=== PATIENT | female | born 1955 | race Caucasian/White ===

== ENCOUNTER → 2017-01-27 | Outpatient (CLI) | payer BC ==
[~2017-01-27] MED LIST: ASCO500T8 PO; ASPI-496 PO; BIOT10TA PO; CALC1CAP8 PO; CHOL100015 PO; KRIL1CAP19 PO; MULT-658 PO
[2017-01-27 12:51] LABS: ASPARTATE AMINO TRANSFERASE 12 U/L (15-37); BLOOD UREA NITROGEN 14 mg/dL (7-18)
== END | disposition home or self-care (01) ==
LOC: STAR 10:26
PROVIDERS: ATTEND Surgery
DX: Z01.818 Encounter for other preprocedural examination (principal); J98.11 Atelectasis; I70.0 Atherosclerosis of aorta; Z85.3 Personal history of malignant neoplasm of breast
CPT/HCPCS: 36415; 71020; 80053; 85025; 93005

== ENCOUNTER 2017-02-06 06:22 | Inpatient (IN) | payer BC ==
[~2017-02-06] VITALS: Ht 163.8 cm; Wt 76.3 kg
[2017-02-06] MEDS ORDERED: LACTATED RINGERS 1,000 ML IV SCH (06:41)
[2017-02-06 06:42] VITALS: BP 133/80
[2017-02-06] MEDS ORDERED: LIDOCAINE 1%, 2ML SQ PRN (07:00)
[2017-02-06] MEDS ORDERED: BUPIVACAINE/PF 0.5% ONE ×2 (07:06→08:00)
[2017-02-06] MEDS ORDERED: MIDAZOLAM 1 MG/ML, 2ML ONE (07:13)
[2017-02-06] MEDS ORDERED: FENTANYL PF 100 MCG/2ML ONE ×3 (07:13→09:57)
[2017-02-06] MEDS ORDERED: ROCURONIUM 10 MG/ML ONE ×2 (07:47)
[2017-02-06] MEDS ORDERED: DEXAMETHASONE 4 MG/ML, 5ML ONE (07:47)
[2017-02-06] MEDS ORDERED: CEFOTETAN 2 GM ONE (07:47)
[2017-02-06] MEDS ORDERED: KETOROLAC 30 MG/1 ML ONE (07:47)
[2017-02-06] MEDS ORDERED: PROPOFOL 10 MG/ML, 20ML ONE (07:47)
[2017-02-06] MEDS ORDERED: ONDANSETRON 2MG/ML, 2ML ONE ×2 (07:47→10:34)
[2017-02-06] MEDS ORDERED: OXYcodone 5 MG/5 ML ORAL.SOL UDC PO PRN ×2 (09:00→13:00)
[2017-02-06] MEDS ORDERED: MEPERIDINE/PF 25MG/0.5ML IVPush PRN (09:00)
[2017-02-06] MEDS ORDERED: PROMETHAZINE 25 MG/ML, 1ML IV PRN (09:00)
[2017-02-06] MEDS ORDERED: LABETALOL 5MG/ML, 20ML IV PRN (09:00)
[2017-02-06] MEDS ORDERED: ACETAMINOPHEN 325 MG TABLET PO PRN (09:00)
[2017-02-06] MEDS ORDERED: ONDANSETRON 2MG/ML, 2ML IVPush PRN (09:00)
[2017-02-06] MEDS ORDERED: FENTANYL PF 100 MCG/2ML IV PRN (09:00)
[2017-02-06] MEDS ORDERED: ACETAMINOPHEN 650 MG/20.3 ML UDC ONE (10:20)
[2017-02-06] MEDS ORDERED: ACETAMINOPHEN 325 MG/10.15 ML UDC ONE (10:20)
[2017-02-06] MEDS ORDERED: HYDROmorphone 1 MG/ML, 1ML ONE (10:21)
[2017-02-06] MEDS ORDERED: OXYcodone 5 MG/5 ML ORAL.SOL UDC ONE (10:21)
[2017-02-06] MEDS: HYDROmorphone 1 MG/ML, 1ML IV PRN ×2 (10:40→11:20)
[2017-02-06] MEDS ORDERED: DIPHENHYDRAMINE 50 MG/ML, 1ML IV PRN (13:00)
[2017-02-06] MEDS ORDERED: HYDROmorphone 1 MG/ML, 1ML IV PRN ×2 (13:00)
[2017-02-06] MEDS ORDERED: LORazepam 2 MG/ML, 1ML IV PRN (13:00)
[2017-02-06] MEDS ORDERED: LORazepam 1MG TABLET PO PRN (13:00)
[2017-02-06] MEDS ORDERED: DIPHENHYDRAMINE 25 MG CAPSULE PO PRN (13:00)
[2017-02-06] MEDS ORDERED: POTASSIUM CHLORIDE 20 MEQ in D5%-0.45% NACL 1,000 ML IV SCH (13:00)
[2017-02-06 14:34] VITALS: BP 103/59
[2017-02-06] MEDS: POTASSIUM CHLORIDE 20 MEQ in D5%-0.45% NACL 1,000 ML IV SCH (16:19)
[2017-02-06] MEDS: IBUPROFEN 600 MG TABLET PO SCH ×2 (16:25→21:04)
[2017-02-06] MEDS: ACETAMINOPHEN 500 MG TABLET PO SCH ×2 (16:25→22:15)
[2017-02-06] MEDS: ONDANSETRON 2MG/ML, 2ML IV PRN (17:22)
[2017-02-06 19:40] VITALS: BP 110/59
[2017-02-06] MEDS: CEFOTETAN PMX 2GM/50ML 50 ML IVPB SCH (19:51)
[2017-02-06] MEDS: FAMOTIDINE 20 MG TABLET PO SCH (21:04)
[2017-02-07] VITALS: BP 111/64
[2017-02-07 04:06] VITALS: BP 102/67
[2017-02-07] MEDS: ACETAMINOPHEN 500 MG TABLET PO SCH ×4 (04:15→22:23)
[2017-02-07] MEDS: ONDANSETRON 2MG/ML, 2ML IV PRN ×2 (05:11→11:22)
[2017-02-07 05:14] LABS: HEMOGLOBIN 11.9 g/dL (11.7-16.4); WHITE BLOOD COUNT 8.4 x10^3/uL (3.4-10)
[2017-02-07 05:29] LABS: BLOOD UREA NITROGEN 11 mg/dL (7-18)
[2017-02-07] MEDS: ENOXAPARIN 40 MG/0.4 ML SQ SCH (05:56)
[2017-02-07 07:02] VITALS: BP 110/70
[2017-02-07] MEDS: IBUPROFEN 600 MG TABLET PO SCH ×3 (08:23→21:07)
[2017-02-07] MEDS: FAMOTIDINE 20 MG TABLET PO SCH ×2 (08:23→21:07)
[2017-02-07] MEDS: CEFOTETAN PMX 2GM/50ML 50 ML IVPB SCH (08:23)
[2017-02-07] MEDS: POTASSIUM CHLORIDE 20 MEQ in D5%-0.45% NACL 1,000 ML IV SCH (10:46)
[2017-02-07 13:40] VITALS: BP 103/65
[2017-02-07 19:45] VITALS: BP 115/71
[2017-02-08 01:17] VITALS: BP 112/66
[2017-02-08] MEDS: ACETAMINOPHEN 500 MG TABLET PO SCH (04:33)
[2017-02-08 05:37] LABS: HEMATOCRIT 33.1 % (34.6-47.8); HEMOGLOBIN 11.2 g/dL (11.7-16.4); WHITE BLOOD COUNT 6.7 x10^3/uL (3.4-10)
[2017-02-08 05:42] LABS: BLOOD UREA NITROGEN 9 mg/dL (7-18)
[2017-02-08] MEDS: ENOXAPARIN 40 MG/0.4 ML SQ SCH (05:50)
[2017-02-08] MEDS: POTASSIUM CHLORIDE 20 MEQ in D5%-0.45% NACL 1,000 ML IV SCH (08:12)
[2017-02-08] MEDS: IBUPROFEN 600 MG TABLET PO SCH (08:52)
[2017-02-08] MEDS: FAMOTIDINE 20 MG TABLET PO SCH (08:52)
[2017-02-08 08:53] VITALS: BP 114/64
[2017-02-08] MEDS ORDERED: HYDR1TAB12 PO (09:55)
== END 2017-02-08 10:55 | disposition home or self-care (01) | DRG 331 ==
LOC: ORIP 06:22 → 4NOR 12:09
PROVIDERS: ADMIT Surgery; ATTEND Surgery
PROC: 0DTF4ZZ Resection of Right Large Intestine, Percutaneous Endoscopic Approach (ICD-10-PCS; principal; 2017-02-06 07:30)
DX: K63.89 Other specified diseases of intestine (principal); Z90.49 Acquired absence of other specified parts of digestive tract
CPT/HCPCS: 36415; 80048; 82040; 85025; 86850; 86900; 88309; J1100; J1170; J1650; J1885; J2250; J2405; J2704; J3010; J3480; J3490; J7120; S0074